=== PATIENT | female | born 1995 | race Caucasian/White ===

== ENCOUNTER 2018-07-02 13:03 | Emergency (ER) | payer BC, OTHER ==
--- NOTE | 2018-07-02 13:10 | PDOC ---
History of Present Illness - General Chief Complaint: Laceration Stated Complaint: NOSE LAC - History of Present Illness Initial Comments: 07/02/18 13:08 The patient is a 23 year old female with no PMH who presents c/o nose injury. Patient was helping her father lift a china cabinet when she hit the bridge of her nose with the sharp edge of the cabinet. Denies any head trauma or LOC. Allergy: Penicillin Social: denies toxic habits PMD: Dr. Salas Past History - Past Medical History Allergies/Adverse Reactions: Allergies Allergy/AdvReac Type Severity Reaction Status Date / Time Penicillins Allergy Rash all Verified 07/02/18 13:04 over Home Medications: Ambulatory Orders Loratadine [Claritin] 10 mg PO DAILY 07/02/18 COPD: No - Suicide/Smoking/Psychosocial Hx Smoking History: Never smoked Hx Alcohol Use: Yes Drug/Substance Use Hx: No Substance Use Type: Alcohol Review of Systems - Review of Systems Constitutional: No: Chills, Fever HEENTM: No: Blurred Vision, Double Vision Respiratory: No: Shortness of Breath Cardiac (ROS): No: Chest Pain, Lightheadedness, Palpitations ABD/GI: No: Constipated, Diarrhea, Nausea, Vomiting *Physical Exam - Vital Signs Last Vital Signs Temp Pulse Resp BP Pulse Ox 98.5 F 73 16 98/61 100 07/02/18 13:03 07/02/18 13:03 07/02/18 13:03 07/02/18 13:03 07/02/18 13:03 - Physical Exam General Appearance: Yes: Nourished, Appropriately Dressed HEENT: positive: Normal Voice, Hearing Grossly Normal, Other (0.75 cm abrasion to nasal bridge) Neck: positive: Trachea midline, Supple Respiratory/Chest: positive: Lungs Clear, Normal Breath Sounds Cardiovascular: positive: S1, S2. negative: JVD Gastrointestinal/Abdominal: positive: Normal Bowel Sounds, Soft Integumentary: positive: Dry, Warm Medical Decision Making - Medical Decision Making 07/02/18 13:09 23 year old female with nasal bridge laceration. Denies any associated head trauma or LOC. Skin approximated and closed using dermabond. Patient unsure of last tetanus shot, declining tetanus at this time. Patient counseled on scar prevention, NSAIDS for pain relief and discharged home. *DC/Admit/Observation/Transfer Diagnosis at time of Disposition: Nasal laceration - Discharge Dispostion Disposition: HOME Condition at time of disposition: Good Decision to Admit order: No - Referrals - Patient Instructions Printed Discharge Instructions: DI for Laceration Repair With Dermabond Additional Instructions: You can take Ibuprofen (up to 3200 mg daily) for pain. Please keep your nose dry for the next 24 hours. Should you decide to get a tetanus shot, please do so within the next 72 hours. Return to the Emergency Department for any new/worsening/concerning symptoms. - Post Discharge Activity
[2018-07-02 13:17] VITALS: BP 98/61; PULSE 73; TEMP 98.5; BMI 21.9
--- NOTE | 2018-07-02 13:38 | PDOC ---
Attending Attestation - Resident Resident Name: Gaviota Hernandez - ED Attending Attestation I have performed the following: I have examined & evaluated the patient, The case was reviewed & discussed with the resident, I agree w/resident's findings & plan, Exceptions are as noted - HPI HPI: 07/02/18 13:36 23 yo F here s/p nose laceration. was carrying a cabinet, trying to lift that tipped and hit her over bridge of nose. no epistaxis, no loc. no other injury. no loc. just happened prior to arrival. tetanus unknown. no other complaints. - Physicial Exam PE: 07/02/18 13:37 awake alert. eyes PERRL, nasal bridge very superficial linear laceration 0.75 cm, no bony step off. no eccymosis. no nasal hematoma or epistaxis. no deformity. lungs clear bilaterally heart rrr nomrg. nuero alert oriented x 3. gait normal. GCS 15. skin : see laceration description above. - Medical Decision Making 07/02/18 13:38 plan dermabond to superficial cut for cosmesis. dc home. pt declined tetanus.
== END 2018-07-02 13:32 | disposition home or self-care (01) ==
LOC: FER 13:03
PROC: 0HQ1XZZ Repair Face Skin, External Approach (ICD-10-PCS; principal; 2018-07-02)
DX: S01.21XA Laceration without foreign body of nose, initial encounter (principal); W22.03XA Walked into furniture, initial encounter; Y93.89 Activity, other specified; Y92.89 Other specified places as the place of occurrence of the external cause
CPT/HCPCS: 99282-25

== ENCOUNTER 2019-01-21 19:45 | Emergency (ER) | payer OTHER, BC | END 2019-01-21 21:50 | disposition home or self-care (01) | LOC: FER 19:45 ==

== ENCOUNTER 2020-11-09 12:16 | Emergency (ER) | payer OTHER ==
[2020-11-09 12:23] VITALS: TEMP 98.2; BMI 21.5
[2020-11-09] MEDS ORDERED: ONDANSETRON 4 MG/2 ML VIAL IVPUSH ONE ×2 (12:25→13:13)
[2020-11-09] MEDS ORDERED: ACETAMINOPHEN 1000 MG/100 ML VIAL (NON FORMULARY) IVPB ONE (12:25)
[2020-11-09] MEDS ORDERED: FAMOTIDINE 20 MG/50 ML IVPB 50 ML IVPB ONE (12:25)
[2020-11-09] MEDS ORDERED: SODIUM CHLORIDE 0.9% 1000 ML INFUS.BAG IV ONE (12:25)
[2020-11-09] MEDS ORDERED: ACETAMINOPHEN INJECTION 100 ML IVPB ONE (12:47)
[2020-11-09] MEDS ORDERED: FAMOTIDINE 20 MG/50 ML IVPB 20 MG/50 ML MG IVPB ONE ×2 (12:47→13:00)
[2020-11-09] MEDS ORDERED: KETOROLAC TROMETHAMINE 15 MG/ML VIAL IVPUSH ONE (12:58)
[2020-11-09] MEDS ORDERED: ONDANSETRON 4 MG/2 ML VIAL ONE ×2 (12:59→13:19)
[2020-11-09] MEDS ORDERED: KETOROLAC TROMETHAMINE 15 MG/ML VIAL ONE (13:00)
[2020-11-09 13:16] LABS: EPITHELIAL CELLS RARE /hpf
[2020-11-09] MEDS ORDERED: HYDROmorphone HCL CARPU-JECT 1 MG/1 ML DISP.SYRIN IVPUSH ONE ×2 (13:18→14:05)
[2020-11-09] MEDS ORDERED: HYDROmorphone HCL/PF 1 MG/ML VIAL ONE ×2 (13:19→14:06)
[2020-11-09 13:20] LABS: BASO % 1.5 % (0-2.0); EOS % 1.1 % (0-4.5); HEMATOCRIT 40.5 % (32.4-45.2); HEMOGLOBIN 13.5 GM/dl (10.7-15.3); LYMPH % 19.3 % (8-40); MCH 31.8 pg (25.7-33.7); MCHC 33.3 g/dl (32.0-36.0); MEAN CELL VOLUME 95.5 fl (80-96); MEAN PLT VOLUME 10.6 fl (7.5-11.1); MONO % 4.5 % (3.8-10.2); NEUT % 73.6 % (42.8-82.8); PLATELET COUNT 230 K/MM3 (134-434); RBC 4.24 M/mm3 (3.60-5.2); RDW 11.8 % (11.6-15.6); WHITE BLOOD COUNT 9.2 K/mm3 (4.0-10.8)
[2020-11-09 13:32] LABS: ALBUMIN 4.4 g/dl (3.4-5.0); BILIRUBIN,TOTAL 0.6 mg/dl (0.2-1); CALCIUM 8.8 mg/dl (8.5-10); CREATININE 0.8 mg/dl (0.55-1.3); POTASSIUM 4.6 mmol/L (3.5-5.1); TOT PROT 7.4 g/dl (6.4-8.2)
[2020-11-09] MEDS ORDERED: TAMSULOSIN HCL 0.4 MG CAP PO ONE (14:08)
[2020-11-09] MEDS ORDERED: SODIUM CHLORIDE 0.9% 500 ML INFUS.BAG IV ONE (14:25)
[2020-11-09] MEDS ORDERED: TAMSULOSIN HCL 0.4 MG CAP ONE (15:00)
[2020-11-09 15:45] VITALS: BP 137/87; PULSE 80
[2020-11-09] MEDS ORDERED: PRESCRIPTION PAD 1 EACH EACH NR ONE (17:53)
== END 2020-11-09 15:47 | disposition home or self-care (01) ==
LOC: FER 12:16
PROC: 3E033NZ Introduction of Analgesics, Hypnotics, Sedatives into Peripheral Vein, Percutaneous Approach (ICD-10-PCS; principal; 2020-11-09)
PROC: 3E033GC Introduction of Other Therapeutic Substance into Peripheral Vein, Percutaneous Approach (ICD-10-PCS; 2020-11-09)
PROC: 3E0333Z Introduction of Anti-inflammatory into Peripheral Vein, Percutaneous Approach (ICD-10-PCS; 2020-11-09)
DX: N20.0 Calculus of kidney (principal)
CPT/HCPCS: 36415; 76775; 80053; 81003; 81015; 81025; 85025; 99285-25; J0131